=== PATIENT | female | born 1970 | race African-American/Black ===

== ENCOUNTER 2025-05-10 09:58 | Emergency (ER) | payer SELFPAY ==
--- NOTE | ~2025-05-10 | CT_ITS ---
EXAMINATION: CT soft tissue neck chest wo DATE: 05/10/2025 10:47 INDICATION: Hoarseness of voice TECHNIQUE: Computed tomography (CT) of the neck and chest was performed without intravenous contrast. Automated exposure control and iterative reconstruction technique were employed. The dose-length pro duct was 779.71 mGy-cm. COMPARISON: None FINDINGS: NECK: Orbits are normal. Mild mucosal thickening in the left ethmoid and bilateral maxillary sinuses. Masto id aircells and middle ear cavities are clear. Submandibular and parotid glands are normal and symmet franchesca. Thyroid gland is unremarkable. There are scattered normal-sized lymph nodes in the neck, no lymp hadenopathy. No masses identified. Airway is unremarkable with normal epiglottis and retropharyngeal soft tissues. Vocal cords are symmetric. Mild cervical spondylosis. CHEST: Mild emphysema. 2-3 mm right middle lobe nodule and 2 mm nodule in the anterobasilar segment of the l eft lower lobe. No pneumonia, pulmonary edema, pleural effusion or pneumothorax. Heart size is normal . Small amount of atherosclerotic coronary artery calcification. No pericardial effusion. Thoracic ao rta is normal in caliber. No pathologically enlarged thoracic lymphadenopathy. Schmorl's node at the central aspect of a chronic appearing mild superior endplate compression fracture at T6. IMPRESSION: 1. Couple indeterminate <3 mm pulmonary nodules in the right middle and left lower lobes. If the warner ent is low risk for lung cancer, no follow-up is needed. If the patient is high risk (i.e., history o f smoking or asbestos or significant radiation exposure), optional follow-up chest CT could be consid ered at 12 months. 2. Symmetric appearance to the vocal cords and no abnormal masses or pathologically enlarged lymphade nopathy in the neck or chest. Specifically no abnormality identified along the course of the bilatera l laryngeal nerves. Reviewed, dictated and finalized at location A. IMPRESSION: 1. Couple indeterminate <3 mm pulmonary nodules in the right middle and left lo wer lobes. If the patient is low risk for lung cancer, no follow-up is needed. If the patient is high risk (i.e., history of smoking or asbestos or significan t radiation exposure), optional follow-up chest CT could be considered at 12 mo nths. 2. Symmetric appearance to the vocal cords and no abnormal masses or pathologic ally enlarged lymphadenopathy in the neck or chest. Specifically no abnormality identified along the course of the bilateral laryngeal nerves.
[2025-05-10 10:00] VITALS: BP 160/68; PULSE 97; RESP 16; TEMP 36.8; O2SAT 96
--- OUTSIDE RECORDS SUMMARY | 2025-05-10 11:59 | XMS_ITS | Clinical Summary ---
Author Organization [facility] Address [address] [place] [address] Care Team Providers Care Aviation Maintenance Technician Name Role Phone Karina Pillai MD Primary Care Prov ider Allergies Active Allergy Reactions Criticality Noted Date Comments Aspirin Other (See comments) Low 12/26/2023 Patient is hemopheliac Hydromorphone Hives Medium 12/26/2023 Penicillins Hives Medium 12/26/2023 Medications magnesium oxide 400 mg magnesium capsule Take 400 mg by mouth 2 (two) times a day 04/24/2020 Active baclofen (LIORESAL) 10 mg tablet Take 1 tablet (10 mg total) by mouth 3 (three) times a day 04/03/2020 Active atorvastatin (LIPITOR) 20 mg tablet Take 1 tablet (20 mg total) by mouth daily 10/28/2019 Active cyclobenzaprine (FLEXERIL) 10 mg tablet Take 1 tablet (10 mg total) by mouth as needed Active ergocalciferol (VITAMIN D) 50,000 unit capsule Take 1 capsule (50,000 Units total) by mouth once a week 06/29/2019 Active nortriptyline (PAMELOR) 10 mg capsule Start with one tab at bedtime. Can increase by one tab per night every two weeks. Maximum dose of 3 tabs per night 03/06/[address] (PROTONIX) 40 mg EC tablet Take 1 tablet (40 mg total) by mouth 2 (two) times a day 03/05/2022 Active Active Problems No known active problems Medical History Medical History Date Comments Hemophilia (HCC) Factor 8 diffci ency Social History Tobacco Use Types Packs/Day Years Used Date Smoking Tobacco: Every Day Cigarettes Smokeless Tobacco: Never Tobacco Cessation:Ready to Q uit: Not Asked; Counseling Given: Not Answered AUDIT-C Answer Date Recorded Q1: How often do you have a drink containing alcohol? Never 12/26/2023 Q2: How many drinks containi ng alcohol do you have on a typical day when you are drinking? Patient does not drink Q3: How often do you have si x or more drinks on one occasion? Never 12/26/2023 Personal Safety Answer Date Recorded Getting School Help Needed Not on file 11/10 Comments Unknown Sex and Gender Information Value Date Recorded Sex Assigned at Not on file Legal Sex Female 3:14 AM JUVENILE CORRECTIONAL OFFICER Gender Identity Not on file Sexual Orientation Not on file Obstetrics History Last Filed Vital Signs Vital Sign Reading Time Taken Comments Blood Pressure 160/89 12/26/2023 11:04 AM CDT Pulse 77 12/26/2023 11:04 AM CDT Temperature 37.3 C (99.2 F) 03/18/2018 4:42 PM CDT Respiratory Rate - - Oxygen Saturation 100% 03/18/2018 4:42 PM CDT Inhaled Oxygen Concentration - - Weight 68.2 kg (150 lb 6.4 oz) 12/26/2023 11:04 AM CDT Height 152.4 cm (5') 12/26/2023 11:04 AM CDT Body Mass Index 29.37 12/26/2023 11:04 AM CDT Plan of Treatment Health Maintenance Due Date Last Done Comments Breast Cancer Screening-Mammogram 1968 Cervical Cancer Screening 1968 Colon Cancer Screening-Colonoscopy 1968 Depression Screening 1968 Hepatitis C Screening 1968 DTaP/Tdap/Td Vaccine (1 - Tdap) 1979 Hepatitis B Screening 1986 Regular Well Visit/Exam 18-64 1986 Pneumococcal vaccine <65 (1 of 2 - PCV) 1987 Zoster Vaccine (1 of 2) 2018 Influenza Vaccine (#1) 2025 Colon Cancer Screening-FIT Discontinued 12/06/2014 Procedures Procedure Name Priority Date/Time Associated Diagnosis Comments OCCULT BLOOD, FECAL (FIT) Routine 12/06/2014 7:35 AM JUVENILE CORRECTIONAL OFFICER from Last 3 Months or Most Recently Relevant to Health Maintenance Results * Occult blood, fecal non neoplasm screening (12/06/2014 7:35 AM JUVENILE CORRECTIONAL OFFICER) Stool Occult Blood NEGATIVE NEGATIVE 12/06/2014 9:15 AM JUVENILE CORRECTIONAL OFFICER [facility] HISTORICAL RESULTS 12/06/2014 7:35 AM JUVENILE CORRECTIONAL OFFICER 12/06/2014 8:20 AM JUVENILE CORRECTIONAL OFFICER Narrative [facility] H[facility] RES[facility] - 12/06/2014 9:15 AM JUVENILE CORRECTIONAL OFFICER Collected By [address] VALENZUELA LAB BODY FLUIDS AND STOOLS OR DERABLES Final Result [facility] HISTORICAL RESULTS from Last 3 Months or Most Recently Relevant to Health Maintenance Insurance Care Teams Aviation Maintenance Technician Relationship Specialty Start Date End Date Karina Pillai MD [address] [place] [address] PCP - General Family Medicine 12/23/23
--- OUTSIDE RECORDS SUMMARY | 2025-05-10 11:59 | XMS_ITS | Clinical Summary ---
Author Organization [facility] Address [address] [place] [address] Care Team Providers Care Cognos Lead Name Role Phone Karina Pillai MD Primary Care Provider + Source Comments [facility],non-owned Affiliates and Associated Physician Practices is amultiple site organization consisting of ambulatory clinics and hospital sitesin [place], [place], [place] and [place]. This disclosure is being madepursuant to the Care Everywhere program and may not contain all informatio navailable regarding this patient. Last updated 18.[facility] Allergies Active Allergy Reactions Criticality Noted Date Comments Aspirin Other High 12/20/2014 I carry the trait for hemophilia Contraindicated with hemophilia Aspirin Buffered Other Low 12/20/2014 I carry the trait for hemophilia Hydromorphone Urticaria,Other Medium 08/14/2016 Itching after injection Penicillins Itching,Swelling,Ski n Reactions Medium 12/20/2014 Swelling at injection site. Medications * Be aware that medications may not be up to date on this document. Alwaysverify current medications with the patient. vitamin D, ergocalciferol, (DRISDOL) 54940 units capsule Take 1 capsule by mouth every 7 days 12 capsule 06/29/2019 Active atorvastatin (LIPITOR) 20 MG tablet Take 20 mg by mouth once daily 10/28/2019 Active nortriptyline (PAMELOR) 10 MG capsule Start with one tab at bedtime. Can increase by one tab per night every two weeks. Maximum dose of 3 tabs per night 60 capsule 3 03/06/2020 Active baclofen (LIORESAL) 10 MG tabletIndicatio ns:Muscle spasm Take 1 tablet by mouth 3 times daily May cause drowsiness. 270 tablet 3 04/03/2020 Active cyclobenzaprine (FLEXERIL) 10 MG tablet Take 10 mg by mouth as needed for Muscle Spasms Active Magnesium 400 MG Take 400 mg by mouth 2 times daily 60 tablet 3 04/24/2020 Active vitamin D, ergocalciferol, (DRISDOL) 1.25 MG (21072 UT) capsule Take 1 capsule by mouth every 7 days 12 capsule 3 04/24/2020 Active famotidine (PEPCID) 40 MG tablet Take 40 mg by mouth 2 times daily 03/05/2022 Active pantoprazole EC (PROTONIX) 40 MG tablet Take 40 mg by mouth 2 times daily 03/05/2022 Active Active Problems Problem Noted Date Diagnosed Date Vitamin D deficiency 07/20/2015 Bilateral carpal tunnel syndrome Resolved Problems Problem Noted Date Diagnosed Date Resolved Date Rheumatoid arthritis with ne gative rheumatoid factor 01/18/2016 04/14/2019 Family History Medical History Relation Name Comments Diabetes Brother Cancer Father Diabetes Mother Relation Name Status Comments Brother Father Mother Social History Tobacco Use Types Packs/Day Years Used Date Smoking Tobacco: Every Day Cigarettes Smokeless Tobacco: Never Alcohol Use Standard Drinks/Week Comments No 0 (1 standard drink = 0.6 oz pur e alcohol) Comments No Sex and Gender Information Value Date Recorded Sex Assigned at Female 07/25/2021 2:12 PM CDT 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 Gender Identity Female 07/25/2021 2:12 PM CDT Sexual Orientation Straight 07/25/2021 2: 12 PM CDT Last Filed Vital Signs Vital Sign Reading Time Taken Comments Blood Pressure 138/84 03/29/2022 1:57 PM CDT Pulse 62 03/29/2022 1:57 PM CDT Temperature 36.7 C (98.1 F) 03/29/2022 1:57 PM CDT Respiratory Rate 20 04/24/2020 12:47 PM CDT Oxygen Saturation 96% 03/29/2022 1:57 PM CDT Inhaled Oxygen Concentration - - Weight 72.1 kg (159 lb) 03/29/2022 1:57 PM CDT Height 152.4 cm (5') 03/29/2022 1:57 PM CDT Body Mass Index 31.05 03/29/2022 1:57 PM CDT Plan of Treatment Health Maintenance Due Date Last Done Comments COLOGUARD (AGES 45-75) - COLON CA SCREENING 1968 COLON MONITORING 1968 COLONOSCOPY - COLON CA SCREENING 1968 CT COLONOGRAPHY - COLON CA SCREENING 1968 Colorectal Cancer Screening 1968 FIT - COLON CA SCREENING 1968 FLEX SIG - COLON CA SCREENING 1968 MAMMOGRAM 1968 HIV SCREENING 1983 DTAP/TDAP/TD VACCINES (1 - Tdap) 1987 HEPATITIS B VACCINE (1 of 3 - 19+ 3-dose series) 1987 PNEUMOCOCCAL VACCINE 50+ (1 of 2 - PCV) 1987 PAP SMEAR 1989 ZOSTER VACCINE (1 of 2) 2018 COVID-19 VACCINE (1 - season) 2024 SCREENING FOR DIABETES 07/23/2024 , 03/06/2020, 06/10/2019, Additional history exists DEPRESSION SCREENING 10/06/2024 INFLUENZA VACCINE (#1) 2025 HEPATITIS C SCREENING Completed 06/10/2019, 015 HIB VACCINE Aged Out No longer eligi ble based on patient's age to complete this topic HPV VACCINE Aged Out No longer eligi ble based on patient's age to complete this topic MENINGOCOCCAL (Group B) VACCINE SHARED DECISION-MAKING Aged Out No longer eligible based on patient's age to complete this topic MENINGOCOCCAL GROUPS A/C/Y/W VACCINE Aged Out No longer eligible based on patient's age to complete this topic Procedures Procedure Name Priority Date/Time Associated Diagnosis Comments COMPREHENSIVE METABOLIC PANEL Routine 07/23/2021 2:21 PM CDT Smoking history Arthralgia of both hands HEPATITIS C AB W/RFLX TO HCV RNA QN PCR Routine 06/10/2019 8:29 AM CDT Arthralgia, unspecified joint from Last 3 Months or Most Recently Relevant to Health Maintenance Results * (ABNORMAL) COMPREHENSIVE METABOLIC PANEL (07/23/2021 2:21 PM [facility]) BUN 7 7 - 26 mg/dL 07/23/2021 3:16 PM [facility] Creatinine 1.09(H) 0.56 - 0.96 mg/dL 07/23/2021 3:16 PM [facility] Sodium 142 136 - 145 mmol/L 07/23/2021 3:16 PM [facility] Potassium 3.8 3.5 - 4.5 mmol/L 07/23/2021 3:16 PM [facility] Chloride 106 98 - 107 mmol/L 07/23/2021 3:16 PM [facility] CO2 25 22 - 29 mmol/L 07/23/2021 3:16 PM [facility] Glucose 97 70 - 115 mg/dL 07/23/2021 3:16 PM [facility] Calcium 9.5 8.4 - 10.2 mg/dL 07/23/2021 3:16 PM [facility] Protein Total 7.0 6.0 - 8.3 g/dL 07/23/2021 3:16 PM [facility] Albumin 4.0 3.4 - 5.0 g/dL 07/23/2021 3:16 PM [facility] Bilirubin Total 0.4 0.2 - 1.2 mg/dL 07/23/2021 3:16 PM [facility] Alkaline Phosphatase 66 40 - 150 U/L 07/23/2021 3:16 PM [facility] ALT 5 5 - 55 U/L 07/23/2021 3:16 PM [facility] AST 15 5 - 34 U/L 07/23/2021 3:16 PM [facility] Anion Gap 15 8 - 18 07/23/2021 3:16 PM [facility] BUN/Creatinine Ratio 6(L) 7 - 23 07/23/2021 3:16 PM [facility] Osmolality Calculated 292 270 - 300 mOsm/kg 07/23/2021 3:16 PM CDT [facility] Albumin/Globulin Ratio 1.3 1.1 - 2.3 07/23/2021 3:16 PM CDT [facility] eGFR by CKD-EPI 58(L) >=90 mL/min/1.7 3 m2 07/23/2021 3:16 PM CDT [facility] Blood BLOOD SPECIMEN / Unknown Lab Venipuncture / Unknown 07/23/2021 2:21 PM CDT 07/23/2021 2:47 PM CDT us Parminder Duron MD LAB - CHEMISTRY ORDERABLES Final Result Performing Organization Address City/[facility]/ZIP Co de Phone Number [facility] [address] [place] [address], [facility] [phone] * HEPATITIS C AB W/RFLX TO HCV RNA QN PCR (06/10/2019 8:29 AM CDT) Hepatitis C Antibody NON-REACTI VE NON-REACT DAKSHA Blue Badge Style Signal to Cut-Off 0.04 <1.00 [facility] Comment: HCV antibody was non-reactive. There is no laboratory evidence of HCV infection. In most cases, no further action is required. However, if recent HCV exposure is suspected, a test for HCV RNA (test code 05924) is suggested. For additional information please refer to http://education.LetsWombat/faq/LAU19s5 (This link is being provided for informational/ educational purposes only.) Test Performed at: [facility] [address] [place] [address] JENNIFER VILLARREAL DO,MPH Blood BLOOD SPECIMEN / Unknown 06/10/2019 8:29 AM CDT 06/10/2019 8:30 AM CDT us Parminder Duron MD LAB - CHEMISTRY ORDERABLES Final Result [facility] [id number] [place] [address] from Last 3 Months or Most Recently Relevant to Health Maintenance Insurance [facility] Care Teams Cognos Lead Relationship Specialty Start Date End Date Karina Pillai MD [address] [place] [address] PCP - General Family Medicine 05/26/19
--- OUTSIDE RECORDS SUMMARY | 2025-05-10 11:59 | XMS_ITS | Encounter Summary ---
Author Organization [facility] Address [address] [place] [address] Care Team Providers Care Engineering Illustrator Name Role Phone Karina Pillai MD Primary Care Provider + Encounter Details Date Type Department Care Team (Late st Contact Info) Description 10/24/2021 Telephone [facility] [address] [place] [address] Parminder Duron MD [facility] [place] [id number] Social History Tobacco Use Types Packs/Day Years Used Date Smoking Tobacco: Every Day Cigarettes Smokeless Tobacco: Never Alcohol Use Standard Drinks/Week Comments No 0 (1 standard drink = 0.6 oz pur e alcohol) Comments No Sex and Gender Information Value Date Recorded Sex Assigned at Female 07/25/2021 2:12 PM CDT Legal Sex Female 6:19 AM ANIMAL SERVICES OFFICER Gender Identity Female 07/25/2021 2:12 PM CDT Sexual Orientation Straight 07/25/2021 2: 12 PM CDT documented as of this encounter Patient Instructions * Patient Instructions* Velia Nieves - 10/24/2021 1:34 PM ANIMAL SERVICES OFFICER Patient's PCP Dr. Karina Pillai called needing the last two office visit notes on the patient. Her fax number is [phone] or her contact number is [phone]. AL SERVICES OFFICER documented in this encounter Miscellaneous Notes * Telephone Encounter - Yolette Cartagena LPN - 10/25/2021 4:07 PM ANIMAL SERVICES OFFICER Patient's PCP Dr. Karina Pillai called needing the last two office visit notes on the patient. Her fax number is [phone] or her contact number is [phone]. Faxed as requested to Provider; receipt confirmation. AL SERVICES OFFICER documented in this encounter Plan of Treatment Not on file documented as of this encounter Visit Diagnoses Not on filedocumented in this encounter Care Teams Engineering Illustrator Relationship Specialty Start Date End Date Karina Pillai MD [address] [place] [id number] PCP - General Family Medicine 05/26/19 documented as of this encounter
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
--- OUTSIDE RECORDS SUMMARY | 2025-05-10 11:59 | XMS_ITS | Referral Summary ---
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 HISTORICAL RESULTS 12/06/2014 7:35 AM TUMBLER DYEING MACHINE OPERATOR 12/06/2014 8:20 AM TUMBLER DYEING MACHINE OPERATOR Narrative [facility] HISTORICAL RESULTS - 12/06/2014 9:15 AM TUMBLER DYEING MACHINE OPERATOR Collected By tl [id number] VALENZUELA LAB BODY FLUIDS AND STOOLS OR DERABLES Final Result [facility] HISTORICAL RESULTS from Last 3 Months or Most Recently Relevant to Health Maintenance Insurance [facility] Care Teams Respiratory Care Practitioner Relationship Specialty Start Date End Date Karina Pillai MD [address] [place] [address] PCP - General Family Medicine 12/23/23
--- NOTE | 2025-05-10 12:09 | ED.GENADULT ---
HPI - General Adult General Chief complaint: Skin/Abscess/Foreign Body Stated complaint: cant swallow or breath Time Seen by Provider: 05/10/25 10:19 Source: patient Mode of arrival: ambulatory Limitations: no limitations History of Present Illness HPI narrative: 54-year-old presents to the ER with a complains of hoarse voice for past several months. Patient states that she has not seen a primary doctor for several years. She states that she has been taking care of her who had liver failure for several years and who recently in month of April. She denies any fever or chills has occasional cough. Patient states that she had nasopharyngoscopy done in [facility] several months ago and was told that she had polyps but has not followed up with any one as she does not have Medical insurance. Onset (ago): year(s) Severity: mild Pain Consistency: constant Exacerbating factors: none Associated symptoms: denies other symptoms Review of Systems Review of Systems: All systems reviewed & are unremarkable except as noted in HPI and below Constitutional: Constitutional: Reports no additional constitutional complaints Eyes: Eyes: Reports no additional eye complaints ENT: Reports as per HPI Cardiovascular: Cardiovascular: Reports no additional cardiovascular complaints Respiratory: Respiratory: Reports no additional respiratory complaints Gastrointestinal: Gastrointestinal: Reports no additional gastrointestinal complaints Musculoskeletal: Musculoskeletal: Reports no additional musculoskeletal complaints Exam Narrative: GENERAL: Well-appearing, well-nourished, and in no acute distress. HEAD: Normocephalic, atraumatic. EYES: PERRLA and EOMI. ENT: Nares clear, no rhinorrhea or epistaxis. Mucous membranes moist. NECK: Supple. CHEST: Clear to auscultation. No respiratory distress. HEART: Regular rate and rhythm. No murmur heard. Normal peripheral pulses. ABDOMEN: Soft, nontender, nondistended, normal active bowel sounds. EXTREMITIES: Normal range of motion. No edema. SKIN: Warm, dry, no rash. NEURO: No focal deficits. Alert and oriented x3. PSYCH: Normal mood and affect. Course Course Emergency Course: Notified patient about her CT findings. Recommended her to follow with ENT for further workup. Did consult case management for her medical needs. Vital Signs Vital signs: Vital Signs Temperature 36.8 C 05/10/25 10:00 Pulse Rate 97 05/10/25 10:00 Respiratory Rate 16 05/10/25 10:00 Blood Pressure 160/68 H 05/10/25 10:00 Pulse Oximetry 96 05/10/25 10:00 Oxygen Delivery Room Air 05/10/25 10:00 Temperature 36.8 C 05/10/25 10:00 Pulse Rate 97 05/10/25 10:00 Respiratory Rate 16 05/10/25 10:00 Blood Pressure 160/68 H 05/10/25 10:00 Pulse Oximetry 96 05/10/25 10:00 Oxygen Delivery Room Air 05/10/25 10:00 Medical Decision Making Medical Records Medical records reviewed: Yes I reviewed the external patient's medical records. Vital Signs Vital Signs: Vital Signs Temperature 36.8 C 05/10/25 10:00 Pulse Rate 97 05/10/25 10:00 Respiratory Rate 16 05/10/25 10:00 Blood Pressure 160/68 H 05/10/25 10:00 Pulse Oximetry 96 05/10/25 10:00 Oxygen Delivery Room Air 05/10/25 10:00 Temperature 36.8 C 05/10/25 10:00 Pulse Rate 97 05/10/25 10:00 Respiratory Rate 16 05/10/25 10:00 Blood Pressure 160/68 H 05/10/25 10:00 Pulse Oximetry 96 05/10/25 10:00 Oxygen Delivery Room Air 05/10/25 10:00 Imaging Data Radiologist's impression: ITS Impressions Neck/Chest CT 05/10/25 11:43 IMPRESSION: 1. Couple indeterminate <3 mm pulmonary nodules in the right middle and left lower lobes. If the patient is low risk for lung cancer, no follow-up is needed. If the patient is high risk (i.e., history of smoking or asbestos or significant radiation exposure), optional follow-up chest CT could be considered at 12 months. 2. Symmetric appearance to the vocal cords and no abnormal masses or pathologically enlarged lymphadenopathy in the neck or chest. Specifically no abnormality identified along the course of the bilateral laryngeal nerves. Discharge Plan Discharge Clinical Impression: Hoarseness of voice Patient Disposition: Home Condition: Stable Instructions: Laryngospasm (DC) Additional Instructions: Your CT scan which was done here in the ER was unremarkable. However is recommended to follow with ENT for further evaluation. Patient Language: Ukrainian Follow-up/Referrals: Sharon Quiroga MD [Physician] - PHYSICIAN NOT ON STAFF,NONSTAFF [Primary Care Provider] - Time of Disposition: 12:24
[2025-05-10 12:51] VITALS: BP 152/72; PULSE 85; RESP 16; O2SAT 99
== END 2025-05-10 12:51 | disposition home or self-care (01) ==
PROVIDERS: Emergency Provider Family Medicine
DX: R49.0 Dysphonia (principal); R91.8 Other nonspecific abnormal finding of lung field
CPT/HCPCS: 70490; 71250; 99284